=== PATIENT | male | born 1975 | race Caucasian/White ===

== ENCOUNTER 2017-01-12 18:35 | Emergency (ER) | payer OTHER ==
[~2017-01-12] VITALS: Ht 180.3 cm; Wt 86.2 kg
== END 2017-01-12 22:40 | disposition short-term general hospital (02) ==
LOC: ER 18:35 → RAD 18:36 → ER 22:40
PROC: 0HQ1XZZ Repair Face Skin, External Approach (ICD-10-PCS; principal; 2017-01-12)
PROC: 0HQDXZZ Repair Right Lower Arm Skin, External Approach (ICD-10-PCS; 2017-01-12)
DX: S01.82XA Laceration with foreign body of other part of head, initial encounter (principal); S61.511A Laceration without foreign body of right wrist, initial encounter; S61.411A Laceration without foreign body of right hand, initial encounter; S20.319A Abrasion of unspecified front wall of thorax, initial encounter; S40.812A Abrasion of left upper arm, initial encounter; S40.811A Abrasion of right upper arm, initial encounter; Z23 Encounter for immunization; V97.89XA Other air transport accidents, not elsewhere classified, initial encounter